=== PATIENT | female | born 1980 | race Caucasian/White ===

== ENCOUNTER 2016-12-09 20:19 | Emergency (ER) | payer MEDICAID ==
--- NOTE | ~2016-12-09 | ER ---
PATIENT'S NAME: GUY CRONIN [facility] AGE: 36 Y [address] ROOM: [place] [address] LOCATION: [facility] ADMIT DATE: 12/09/2016 ER/Outpatient Report DISCHARGE DATE: 12/09/2016 FAMILY PHYSICIAN: Hank Mckeon MD ATTENDING PHYSICIAN: Spencer Castle Time of Arrival: Admission date and time documented on the medical record. Time of Evaluation: I saw the patient at 2030 hours. CHIEF COMPLAINT: Shortness of breath and coarse cough, nonproductive. HISTORY OF PRESENT ILLNESS: This patient is a 36-year-old female, who has been ill for about 3 to 4 days. She has had increasing shortness of breath during this time, worse today. She has chest pain on inspiration. She has expiratory wheezes, audible. She has a nonproductive cough. No fever, chills, or sweats. No abdominal pain, nausea, vomiting, or diarrhea. No urinary symptoms. No joint or muscle swelling, redness, or pain. No skin eruptions or rash. No lightheadedness, dizziness, syncope or near syncope. No fall or trauma. No headache, eyes, ears, nose, throat, neck, or spine pain. No neuro changes or endocrine problems. Does have posttraumatic stress disorder, depression, anxiety, and chronic stress. HOME MEDICATIONS: See attached medication list. ALLERGIES: BENADRYL, MORPHINE, AND VICODIN. SOCIAL HISTORY: The patient smokes half pack of cigarettes a day. Nondrinker. SIGNIFICANT PAST MEDICAL HISTORY: Tobacco abuse, posttraumatic stress disorder, anxiety, depression, and chronic stress. OPERATIONS: delivery, left ankle surgery, and nasal septal surgery. REVIEW OF SYSTEMS: All systems reviewed by me are negative with the exception of those discussed in the history of present illness. PHYSICAL EXAMINATION: [facility] 36 Y [address] ROOM: [place] [address] LOCATION: [facility] ADMIT DATE: 12/09/2016 ER/Outpatient Report DISCHARGE DATE: 12/09/2016 FAMILY PHYSICIAN: Hank Mckeon MD ATTENDING PHYSICIAN: Spencer Castle VITAL SIGNS: Temperature 96.4, tympanic; pulse 84; respirations 18; blood pressure 115/71; and O2 saturation on room air is 96%. HEAD: Normocephalic. EYES, EARS, NOSE, AND THROAT: Clear. Mucous membranes moist. NECK: Negative. SPINE: Negative. LUNGS: Decreased breath sounds diffusely. Coarse bronchitic congested cough. Expiratory wheezes. HEART: Regular. Pulses palpable. No chest wall or ribcage pain to palpation. ABDOMEN: Soft, nondistended, nontender. Good bowel tones. No organomegaly or abnormal mass palpable. EXTREMITIES: Without peripheral edema, cyanosis, or deformity. NEUROVASCULAR: Intact. SKIN: Clear. No skin eruptions or rash. LABORATORY DATA AND X-RAYS: Chest x-ray showed no acute infiltrate or changes. We will review x-ray with the radiologist. Laboratory: CMS was normal. [id number] cardiac enzymes were normal. CRP was 0.69. White count was 8600, 65 segs, 23 lymphs, 10 monos, 1 eo, 1 baso; hemoglobin was 15.7 with hematocrit of 46.1; platelet count was 302,000. Lactate was 0.7. IMPRESSION: Bronchitis. PLAN: The patient was given Rocephin 1 g IM in the emergency department. The patient dismissed home. Observation. Activity as tolerated. Good fluid intake. Diet as tolerated. Continue present home medications and care. Z- Albert, take as directed. Albuterol oral inhaler with AeroChamber 2 puffs 4 times a day and as needed. Follow up with personal physician in 7 to 10 days or sooner if needed. Discussion ensued with the patient concerning my findings and recommendations, she understands. SPENCER CASTLE MD SDS/modl PATIENT'S NAME: GUY CRONIN [facility] AGE: 36 Y [address] ROOM: [place], [place] [address] LOCATION: [facility] ADMIT DATE: 12/09/2016 ER/Outpatient Report DISCHARGE DATE: 12/09/2016 FAMILY PHYSICIAN: Hank Mckeon MD ATTENDING PHYSICIAN: Spencer Castle /[id number] d: 12/10/16 0118 t: 12/10/16 1810, OUTPATIENT REPORT
[2016-12-09 21:14] LABS: BASOPHIL # 0.1 K/uL (0.0-0.2); BASOPHIL % 0.8 %; EOSINOPHIL # 0.1 K/uL (0.0-0.5); EOSINOPHIL % 1.2 %; HEMATOCRIT 46.1 % (33.0-46.0); HEMOGLOBIN 15.7 g/dL (11.0-15.0); IMMATURE GRANULOCYTE % 0.3 %; LYMPHOCYTE % 22.9 %; MCHC 34.1 gm/dL (32.0-36.5); MCV 93.9 fl (83.0-98.0); MONOCYTE # 0.8 K/uL (0.0-1.0); MONOCYTE % 9.6 %; MPV 9.1 fl (9.4-12.4); NEUTROPHIL # (ANC) 5.6 K/uL (1.8-7.8); NEUTROPHIL % 65.2 %; NRBC % 0 /100WBC (0-0.00); PLATELET COUNT 302 K/uL (150-450); RBC 4.91 M/uL (3.50-5.50); RDW-CV 12.3 % (11.9-14.6); WBC 8.6 K/uL (4.0-11.0)
[2016-12-09 21:37] LABS: ALBUMIN 4.2 gm/dL (3.5-5.0); ALK PHOS 95 IU/L (33-138); ALT 16 IU/L (12-78); ANION GAP 10.3 (10.0-19.0); AST 19 IU/L (10-40); BLOOD UREA NITROGEN 11 mg/dL (6-24); CALCIUM 8.7 mg/dL (8.5-10.5); CHLORIDE 105 mMol/L (96-110); CO2 27 mMol/L (22-32); CPK 60 IU/L (21-215); CREATININE 0.8 mg/dL (0.5-1.1); POTASSIUM 4.3 mMol/L (3.7-5.1); SODIUM 138 mMol/L (135-145); TOTAL BILIRUBIN 0.3 mg/dL (0.0-1.5)
== END 2016-12-09 22:20 | disposition disaster alternative care site (69) ==
LOC: GMED 20:19
PROVIDERS: Emergency Medicine
DX: J40 Bronchitis, not specified as acute or chronic (principal); F17.210 Nicotine dependence, cigarettes, uncomplicated; F41.9 Anxiety disorder, unspecified; F32.9 Major depressive disorder, single episode, unspecified; F43.10 Post-traumatic stress disorder, unspecified; Z88.5 Allergy status to narcotic agent; Z88.8 Allergy status to other drugs, medicaments and biological substances; Z79.899 Other long term (current) drug therapy
CPT/HCPCS: J0696